=== PATIENT | female | born 1985 | race Caucasian/White ===

== ENCOUNTER 2018-10-12 15:58 | Emergency (ER) | payer OTHER ==
[~2018-10-12] VITALS: Ht 162.6 cm; Wt 68.0 kg
[2018-10-12] MEDS ORDERED: IOHEXOL 240 MG/ML 50ML VIAL. PO ONE (16:30)
[2018-10-12] MEDS ORDERED: IOHEXOL 300 MG/ML 75 ML VIAL. IV ONE (16:30)
[2018-10-12] MEDS ORDERED: IV NORMAL SALINE 1,000ML 1,000 ML IV SCH (16:30)
--- NOTE | 2018-10-12 16:30 | PHYS DOC ---
Past History Past Medical History: No Pertinent History (NIKO RAUSCH MD) Smoking: Non-smoker Drug Use: None (NIKO RAUSCH MD) Adult General Chief Complaint Chief Complaint: ABDOMINAL PAIN HPI HPI Patient is a 33 year old female who presents with cleaning of abdominal pain and constipation. Patient came from [place] 2 weeks ago for training and complaining of constipation and abdominal bloating for the last 2 weeks. Patient states she usually has had a bowel movement every day but for the last 2 weeks she has bowel movement every other day with the straining and hard stool. Patient also complaining of lower abdominal bloating mainly in afternoon with discomfort feeling in her abdomen without radiation of pain. Patient states for the last one year she has had urinary frequency without dysuria or hematuria without new changed recently. Patient denies nausea and vomiting and change of appetite. Patient states she gained about 10 pounds for the last few months. She states her menstruation started 3 weeks ago and denies or vaginal discharge and bleeding. (NIKO RAUSCH MD) Review of Systems Review of Systems Constitutional: Denies fever or chills [] Eyes: Denies change in visual acuity, redness, or eye pain [] HENT: Denies nasal congestion or sore throat [] Respiratory: Denies cough or shortness of breath [] Cardiovascular: No additional information not addressed in HPI [] GI: Reports abdominal pain, constipation, denies nausea, vomiting, bloody stools or diarrhea [] : Denies dysuria or hematuria [] Musculoskeletal: Denies back pain or joint pain [] Integument: Denies rash or skin lesions [] Neurologic: Denies headache, focal weakness or sensory changes [] Endocrine: Denies polyuria or polydipsia [] All other systems were reviewed and found to be within normal limits, except as documented in this note. (NIKO RAUSCH MD) Allergies Allergies Allergies Uncoded Allergies Type Severity Reaction Last Updated Verified ceptra Allergy Unknown 10/12/18 (NIKO RAUSCH MD) Physical Exam Physical Exam Constitutional: Well developed, well nourished, no acute distress, non-toxic appearance. [] HENT: Normocephalic, atraumatic, oropharynx moist, no oral exudates. [] Eyes: PERRLA, EOMI, conjunctiva normal, no discharge. [] Neck: Normal range of motion, no tenderness, supple, no stridor. [] Cardiovascular:Heart rate regular rhythm, no murmur [] Lungs & Thorax: Bilateral breath sounds clear to auscultation [] Abdomen: Bowel sounds normal, soft, no tenderness, no masses, no pulsatile masses. [] Skin: Warm, dry, no erythema, no rash. [] Back: No tenderness, no CVA tenderness. [] Extremities: No tenderness, no cyanosis, no clubbing, ROM intact, no edema. [] Neurologic: Alert and oriented X 3, normal motor function, normal sensory function, no focal deficits noted. [] Psychologic: Affect normal, judgement normal, mood normal. [] (NIKO RAUSCH MD) EKG EKG [] (NIKO RAUSCH MD) Radiology/Procedures Radiology/Procedures [] (NIKO RAUSCH MD) Course & Med Decision Making Course & Med Decision Making Pertinent Labs and Imaging studies reviewed. (See chart for details) Evaluation of patient in ER showed 33-year-old female patient with complaining of abdominal pain and constipation for 2 weeks. Labs and physical exam was unremarkable. CT abdomen and pelvis is pending. Patient care transferred to Dr. Gallo at 1800. (NIKO RAUSCH MD) Course & Med Decision Making Patient found to have hematuria. Patient also found not to have urinary retention. Patient had minimal urine after voiding with catheterization. CT findings suggestive of appendicolith-early appendicitis. Patient did have findings of ovarian cyst on left side. Reexam patient before transfer to [facility] noted minimal rebound to right lower quadrant. Minimal heeltap or obturator sign. Discussed presentation, testing and treatment plan with patient. Patient accepted at [facility] under the hospitalist. Did discuss patient's findings with Dr. Rooney. Impression: 1. Abdomen pain 2. Hematuria 3. CT findings of ovarian cyst on left 4. CT findings appendicolith on right-radiology felt that may indicate early appendicitis (MARIYA GALLO MD) Dragon Disclaimer Dragon Disclaimer This electronic medical record was generated, in whole or in part, using a voice recognition dictation system. (NIKO RAUSCH MD) Departure Departure: Impression: Primary Impression: Abdominal pain Referrals: PCP,NO (PCP) Discharge Summary Visit Information Final Diagnosis Problems Medical Problems: (1) Abdominal pain Status: Acute (MARIYA GALLO MD) Brief Hospital Course Allergies Allergies Coded Allergies Type Severity Reaction Last Updated Verified sulfamethoxazole Allergy Unknown 10/12/18 Yes trimethoprim Allergy Unknown 10/12/18 Yes Vital Signs Vital Signs Date Time Temp Pulse Resp B/P (MAP) Pulse Ox O2 Delivery O2 Flow Rate FiO2 10/12/18 22:30 64 16 106/56 (73) 99 Room Air 10/12/18 15:58 98.3 Brief Hospital Course Ms. Maloney is a 33 old female who presented with abd. pain. Transfer to [facility]- Hospitalist. Surgery consult Dr. Rooney. (MARIYA GALLO MD) Discharge Information Condition at Discharge: Improved, Stable Disposition/Orders: D/C to Another Facility Dischare Medications Current Medications Sodium Chloride 1,000 ml @ 1,000 mls/hr Q1H IV Last administered on 10/12/18 18:09; Start 10/12/18 at 16:30; Stop 10/12/18 at 17:29; Status DC Iohexol (Omnipaque 240 Mg/ml) 30 ml 1X ONCE PO ; Start 10/12/18 at 16:30; Stop 10/12/18 at 16:33; Status DC Iohexol (Omnipaque 300 Mg/ml) 75 ml 1X ONCE IV Last administered on 10/12/18at 17:24; Start 10/12/18 at 16:30; Stop 10/12/18 at 16:33; Status DC Ondansetron HCl (Zofran) 4 mg 1X ONCE IV Last administered on 10/12/18at 18:09 ; Start 10/12/18 at 18:15; Stop 10/12/18 at 18:16; Status DC Ceftriaxone Sodium 1 gm/ Sodium Chloride 50 ml @ 100 mls/hr 1X ONCE IV Last administered on 10/12/18at 21:50; Start 10/12/18 at 20:30; Stop 10/12/18 at 20:59 ; Status DC Metronidazole 100 ml @ 100 mls/hr 1X ONCE IV Last administered on 10/12/18at 22:46; Start 10/12/18 at 20:30; Stop 10/12/18 at 21:29; Status DC Lactated Ringer's 1,000 ml @ 1,000 mls/hr 1X ONCE IV ; Start 10/12/18 at 20:30 ; Stop 10/12/18 at 21:29; Status DC Sodium Chloride 50 ml @ As Directed STK-MED ONCE .ROUTE ; Start 10/12/18 at 21: 47; Stop 10/12/18 at 21:48; Status DC Ceftriaxone Sodium (Rocephin) 1 gm STK-MED ONCE .ROUTE ; Start 10/12/18 at 21:47 ; Stop 10/12/18 at 21:48; Status DC (MARIYA GALLO MD) Dragon Disclaimer This chart was dictated in whole or in part using Voice Recognition software in a busy, high-work load, and often noisy Emergency Department environment. It may contain unintended and wholly unrecognized errors or omissions. (MARIYA GALLO MD) Problem Qualifiers Primary Impression: Abdominal pain Abdominal location: lower abdomen, unspecified Qualified Codes: R10.30 - Lower abdominal pain, unspecified NIKO RAUSCH MD Oct 12, 2018 16:30 MARIYA GALLO MD Oct 15, 2018 03:11
[2018-10-12 17:34] LABS: BASO % 1 % (0-3); EOS # 0.1 x10^3/uL (0.0-0.7); EOS % 2 % (0-3); HEMATOCRIT 43.3 % (36.0-47.0); HEMOGLOBIN 14.7 g/dL (12.0-15.5); LYMPH # 1.8 x10^3/uL (1.0-4.8); LYMPH % 29 % (24-48); MEAN CORPUSCULAR HEMOGLOBIN 31 pg (25-35); MEAN CORPUSCULAR HGB CONC 34 g/dL (31-37); MEAN CORPUSCULAR VOLUME 91 fL (79-100); MONO # 0.6 x10^3/uL (0.0-1.1); MONO % 9 % (0-9); NEUT # 3.7 x10^3uL (1.8-7.7); NEUT % 60 % (31-73); PLATELET COUNT 229 x10^3/uL (140-400); RED BLOOD COUNT 4.76 x10^6/uL (3.50-5.40); WHITE BLOOD COUNT 6.2 x10^3/uL (4.0-11.0)
[2018-10-12 17:41] LABS: ALBUMIN 3.9 g/dL (3.4-5.0); ALBUMIN/GLOBULIN RATIO 1.3 (1.0-1.7); CALCIUM 8.9 mg/dL (8.5-10.1); GFR 63.5; POTASSIUM 4.1 mmol/L (3.5-5.1); TOTAL BILIRUBIN 0.3 mg/dL (0.2-1.0); TOTAL PROTEIN 6.9 g/dL (6.4-8.2)
[2018-10-12 17:42] LABS: BACTERIA,URINE FEW /HPF (0-FEW); BILIRUBIN,URINE NEG (NEG); CLARITY,URINE CLEAR; COLOR,URINE YELLOW; GLUCOSE,URINE NEG (NEG); NITRITE,URINE NEG (NEG); SQUAMOUS EPITHELIAL CELL,UR MANY /LPF; UROBILINOGEN,URINE 2 mg/dL (0.2 mg/dL); WBC,URINE OCC /HPF (0-4)
[2018-10-12] MEDS ORDERED: ONDANSETRON PF 4 MG/2 ML VIAL. IV ONE (18:15)
--- NOTE | 2018-10-12 18:25 | RAD ---
EXAM: Abdomen and pelvis CT with intravenous contrast. HISTORY: Pain. TECHNIQUE: Computed tomographic images of the abdomen and pelvis were obtained following the administration of 75 cc Omnipaque 300 intravenous contrast. Multiplanar reformatting was performed. *One or more of the following individualized dose reduction techniques were utilized for this examination: 1. Automated exposure control. 2. Adjustment of the mA and/or kV according to patient size. 3. Use of iterative reconstruction technique. COMPARISON: None. FINDINGS: Evaluation of the lower thorax demonstrates posterior dependent and basilar atelectasis. No hepatic lesion is seen. The collar, pancreas, spleen, adrenal glands and kidneys are unremarkable. There is a small appendicolith within the appendix. There is no significant periumbilical stranding or wall thickening to suggest appendicitis. However, evaluation of this location is limited due to motion during image acquisition. No abnormally thickened or dilated loop of bowel is seen. There is an IUD within the uterine cavity. There is a partially enhancing left ovarian cyst measuring 2.2 cm. There is a small amount of nonspecific pelvic free fluid. The bladder is unremarkable. There is no lymphadenopathy. There is no suspicious osseous lesion. IMPRESSION: 1. Limited evaluation of the lower abdomen and pelvis due to motion. There is a small appendicolith within the appendix and no secondary findings to suggest appendicitis, allowing for study limitations. 2. 2.2 cm peripherally enhancing left ovarian cyst and small amount of pelvic free fluid. Electronically signed by: Emily Macario MD (10/12/2018 6:22 PM) [facility]
[2018-10-12] MEDS ORDERED: IV RINGERS SOLUTION,LACTATED 1,000 ML IV ONE (20:30)
[2018-10-12] MEDS ORDERED: cefTRIAXone SODIUM 1 GM VIAL ONE (21:47)
[2018-10-12] MEDS ORDERED: IV NORMAL SALINE 50ML 50 ML ONE (21:47)
[2018-10-12 22:30] VITALS: BP 106/56
== END 2018-10-12 23:36 | disposition short-term general hospital (02) ==
LOC: ER 15:58
DX: N83.202 Unspecified ovarian cyst, left side (principal); R31.9 Hematuria, unspecified; K38.1 Appendicular concretions; Z88.1 Allergy status to other antibiotic agents; Z88.2 Allergy status to sulfonamides; Z88.8 Allergy status to other drugs, medicaments and biological substances
CPT/HCPCS: 36415; 74177; 80053; 81001; 81025; 83690; 85025; 96365; 96367; 96375; 99285; J0696; J2405; J3490; Q9967; J7030